=== PATIENT | male | born 1995 | race Caucasian/White ===

== ENCOUNTER 2022-01-02 23:20 | Emergency (ER) | payer SELFPAY ==
[~2022-01-02] VITALS: Ht 188 cm; Wt 104.5 kg
[2022-01-03] MEDS ORDERED: AMOXICILLIN 8751 TAB PO (00:52)
[2022-01-03 01:11] VITALS: BP 154/80; PULSE 73
== END 2022-01-03 01:11 | disposition home or self-care (01) ==
LOC: COL.ER 23:20
DX: S02.19XA Other fracture of base of skull, initial encounter for closed fracture (principal); Y04.2XXA Assault by strike against or bumped into by another person, initial encounter; Y92.89 Other specified places as the place of occurrence of the external cause